=== PATIENT | female | born 1995 ===

== ENCOUNTER 2017-03-19 23:16 | Emergency (ER) | payer MEDICAID ==
[2017-03-19 23:17] VITALS: BMI 31.8
[2017-03-19 23:33] VITALS: RESP 16; O2SAT 98
[2017-03-19] MEDS ORDERED: Dexamethasone 4 mg/1 ml ONE (23:45)
[2017-03-19] MEDS: Sodium Chloride 0.9% 1,000 ML IV STA (23:59)
--- NOTE | 2017-03-20 00:22 | ED PDOC ---
HPI: General Adult Time Seen by Provider: 03/19/17 23:36 Chief Complaint (Nursing): Cough, Cold, Congestion Chief Complaint (Provider): sore throat, body aches, fever History Per: Patient History/Exam Limitations: no limitations Onset/Duration Of Symptoms: Days Have you had recent travel within the past 21 days to any of the following countries: [place], [place], [place] or [place]?: No Current Symptoms Are (Timing): Still Present Additional Complaint(s): 22yo female with PMHx including migraines presents to the ED with c/o b/l sore throat, body aches, fever ongoing since this past weekend. Patient states she has pain swallowing food but able to swallow liquids without difficulty. Denies drooling, neck pain, headache, v/d, sick contacts. Patient told triage she had shortness of breath but denies upon provider interview. Past Medical History Reviewed: Historical Data, Nursing Documentation, Vital Signs Vital Signs: Last Vital Signs Temp 100.5 F H 03/19/17 23:58 Pulse 118 H 03/19/17 23:27 Resp 16 03/19/17 23:27 BP 130/83 03/19/17 23:27 Pulse Ox 98 03/19/17 23:27 - Medical History PMH: Migraine Denies: Depression - Surgical History Surgical History: No Surg Hx - Family History Family History: States: No Known Family Hx - Social History Current smoker - smoking cessation education provided: No - Home Medications Home Medications: Ambulatory Orders Medication Instructions Recorded Vitamins6 [ 1 tab PO DAILY 04/29/15 Vitamin] Cephalexin [Keflex] 500 mg PO Q6 #20 cap 04/30/15 Clindamycin [Cleocin] 300 mg PO TID #21 cap 03/20/17 Naproxen [Naprosyn] 500 mg PO BID PRN #14 tablet 03/20/17 - Allergies Allergies/Adverse Reactions: Allergies Allergy/AdvReac Type Severity Reaction Status Date / Time No Known Allergies Allergy Verified 04/29/15 22:58 Review of Systems ROS Statement: Except As Marked, All Systems Reviewed And Found Negative Constitutional: Positive for: Fever, Other (body aches ) ENT: Positive for: Throat Pain, Other (no drooling ) Respiratory: Positive for: Cough (mild ). Negative for: Shortness of Breath Gastrointestinal: Negative for: Vomiting, Diarrhea Musculoskeletal: Negative for: Neck Pain Neurological: Negative for: Headache Physical Exam - Reviewed Nursing Documentation Reviewed: Yes Vital Signs Reviewed: Yes - Physical Exam Appears: Positive for: Well, No Acute Distress Head Exam: Positive for: ATRAUMATIC, NORMAL INSPECTION, NORMOCEPHALIC Skin: Positive for: Normal Color, Warm, Dry Eye Exam: Positive for: Normal appearance, EOMI, PERRL ENT: Positive for: Pharynx Is (patent ), Tonsillar Exudate, Tonsillar Swelling ( b/l inflamed tonsils w/ exudates ), Other (no tongue swelling, no tenderness, no submental, shotty lymph nodes b/l ) Neck: Positive for: Normal, Painless ROM, Supple Cardiovascular/Chest: Positive for: Regular Rate, Rhythm. Negative for: Murmur , Tachycardia Respiratory: Positive for: Normal Breath Sounds. Negative for: Wheezing, Respiratory Distress Gastrointestinal/Abdominal: Positive for: Normal Exam, Soft. Negative for: Tenderness Back: Positive for: Normal Inspection Extremity: Positive for: Normal ROM. Negative for: Deformity, Swelling Neurologic/Psych: Positive for: Alert, Oriented - ECG ECG: Positive for: Interpreted By Me, Viewed By Me ECG Rhythm: Positive for: Sinus Tachycardia (at 108 bpm, no acute ST changes ) O2 Sat by Pulse Oximetry: 98 Pulse Ox Interpretation: Normal (RA) Medical Decision Making Medical Decision Makin: Impression: tonsillitis Decadron, IVF, and clindamycin ordered. Patient stable for d/c with Rx for clindamycin and naprosyn. Scribe Attestation: Documented by Zuly Mancuso acting as a scribe for Maurizio Cuevas III, DO. Provider Scribe Attestation: All medical record entries made by the Scribe were at my direction and personally dictated by me. I have reviewed the chart and agree that the record accurately reflects my personal performance of the history, physical exam, medical decision making, and the department course for this patient. I have also personally directed, reviewed, and agree with the discharge instructions and disposition. Disposition - Clinical Impression Clinical Impression: Tonsillitis - Patient ED Disposition Is Patient to be Admitted: No - Disposition Referrals: Conor Torres MD [Primary Care Provider] - Disposition: Routine/Home Disposition Time: 00:25
[2017-03-20] MEDS: Clindamycin 600 MG in Sodium Chloride 0.9% 100 ML IVPB ONE (00:41)
[2017-03-20 01:49] VITALS: TEMP 98.2
[2017-03-20 01:54] VITALS: BP 118/70; PULSE 89
--- NOTE | 2017-03-20 10:58 | RAD ---
HISTORY: SOB fever COMPARISON: PrintNo prior. TECHNIQUE: Chest PA and lateral FINDINGS: LUNGS: No active pulmonary disease. PLEURA: No significant pleural effusion identified. No pneumothorax apparent. CARDIOVASCULAR: Normal. OSSEOUS STRUCTURES: No significant abnormalities. VISUALIZED UPPER ABDOMEN: Normal. OTHER FINDINGS: None. IMPRESSION: No active disease.
--- NOTE | 2017-03-21 18:54 | CARD ---
APPROVED REPORT EKG Measurement Heart [id number] <Conclusion> Sinus tachycardia Minimal voltage criteria for LVH, may be normal variant Borderline ECG
== END 2017-03-20 01:55 | disposition home or self-care (01) ==
LOC: H.ER 23:16
DX: J03.90 Acute tonsillitis, unspecified (principal); R06.02 Shortness of breath; R05 Cough

== ENCOUNTER 2017-07-17 18:45 | Emergency (ER) | payer MEDICAID, OTHER ==
[2017-07-17 18:45] VITALS: BMI 31.8
[2017-07-17 19:03] VITALS: BP 133/75; PULSE 108; RESP 18; TEMP 100.1; O2SAT 99
--- NOTE | 2017-07-17 19:19 | ED PDOC ---
HPI: Fever Fever Onset Was: 07/18/17 The Fever Was Measured: Oral Recent Sick Contacts: Yes Additional Comments: Pt reports fever, thorat pain and ear pain. Pt states her daughter was diagnosed with strep throat earlier today. Past Medical History Reviewed: Historical Data, Nursing Documentation, Vital Signs Vital Signs: Last Vital Signs Temp 100.1 F H 07/17/17 19:01 Pulse 108 H 07/17/17 19:01 Resp 18 07/17/17 19:01 BP 133/75 07/17/17 19:01 Pulse Ox 99 07/17/17 19:01 - Medical History PMH: No Chronic Diseases, Migraine Denies: Depression - Surgical History Surgical History: No Surg Hx - Family History Family History: States: No Known Family Hx - Living Arrangements Living Arrangements: With Family - Social History Current smoker - smoking cessation education provided: No Alcohol: None Drugs: Denies - Home Medications Home Medications: Ambulatory Orders Medication Instructions Recorded Clindamycin [Cleocin] 300 mg PO TID #21 cap 03/20/17 Naproxen [Naprosyn] 500 mg PO BID PRN #14 tablet 03/20/17 Amoxicillin/Clavulanate [Augmentin 1 tab PO BID #20 tab 07/17/17 875 MG-125 MG] - Allergies Allergies/Adverse Reactions: Allergies Allergy/AdvReac Type Severity Reaction Status Date / Time No Known Allergies Allergy Verified 04/29/15 22:58 Review of Systems ROS Statement: Except As Marked, All Systems Reviewed And Found Negative Constitutional: Positive for: Fever, Chills ENT: Positive for: Ear Pain, Throat Pain Physical Exam - Reviewed Nursing Documentation Reviewed: Yes Vital Signs Reviewed: Yes - Physical Exam Appears: Positive for: Well, Non-toxic, No Acute Distress Head Exam: Positive for: ATRAUMATIC, NORMAL INSPECTION, NORMOCEPHALIC Skin: Positive for: Normal Color, Warm, DRY Eye Exam: Positive for: Normal appearance ENT: Positive for: TM Is/Are ((+) bilateral erythema ). Negative for: Normal ENT Inspection Neck: Positive for: Normal, Painless ROM Cardiovascular/Chest: Positive for: Regular Rate, Rhythm Respiratory: Positive for: CNT, Normal Breath Sounds Gastrointestinal/Abdominal: Positive for: Normal Exam, Bowel Sounds, Soft Back: Positive for: Normal Inspection Extremity: Positive for: Normal ROM Neurologic/Psych: Positive for: Alert, Oriented - ECG O2 Sat by Pulse Oximetry: 99 Disposition - Clinical Impression Clinical Impression: Otitis media - Patient ED Disposition Is Patient to be Admitted: No Counseled Patient/Family Regarding: Diagnosis, Need For Followup, Rx Given - Disposition Disposition: Routine/Home Disposition Time: 19:16 Condition: GOOD Prescriptions: Amoxicillin/Clavulanate [Augmentin 875 MG-125 MG] 1 tab PO BID #20 tab Instructions: Upper Respiratory Infection (ED)
== END 2017-07-17 19:28 | disposition home or self-care (01) ==
LOC: H.ER 18:45
DX: H66.90 Otitis media, unspecified, unspecified ear (principal)

== ENCOUNTER 2018-06-03 19:45 | Observation (INO) | payer OTHER ==
[2018-06-03 21:15] VITALS: BMI 28.2
[2018-06-03] MEDS ORDERED: Sodium Chloride 0.9% 1,000 ML IV STA (21:33)
--- NOTE | 2018-06-03 21:37 | ED PDOC ---
HPI: Abdomen Time Seen by Provider: 06/03/18 21:19 Chief Complaint (Nursing): Abdominal Pain Chief Complaint (Provider): abdominal pain History Per: Patient History/Exam Limitations: no limitations Onset/Duration Of Symptoms: Days Current Symptoms Are (Timing): Better Location Of Pain/Discomfort: RLQ Associated Symptoms: Nausea, Vomiting Additional Complaint(s): 23 y/o female presents for evaluation of abdominal pain x 2 days. Associated vomiting x 5. Patient also notes right-sided throat pain x 3 days. Denies fever, cough, congestion, chest pain, shortness of breath, palpitations, changes in bowel movements, urinary symptoms, recent travel, sick contacts Past Medical History Reviewed: Historical Data, Nursing Documentation, Vital Signs Vital Signs: Last Vital Signs Temp 98.5 F 06/03/18 21:15 Pulse 69 06/03/18 21:15 Resp 19 06/03/18 21:15 BP 131/80 06/03/18 21:15 Pulse Ox 100 06/03/18 23:18 - Medical History PMH: Migraine Denies: Depression - Surgical History Surgical History: No Surg Hx - Family History Family History: States: No Known Family Hx - Living Arrangements Living Arrangements: With Family - Home Medications Home Medications: Ambulatory Orders Medication Instructions Recorded Clindamycin [Cleocin] 300 mg PO TID #21 cap 03/20/17 Naproxen [Naprosyn] 500 mg PO BID PRN #14 tablet 03/20/17 Amoxicillin/Clavulanate [Augmentin 1 tab PO BID #20 tab 07/17/17 875 MG-125 MG] - Allergies Allergies/Adverse Reactions: Allergies Allergy/AdvReac Type Severity Reaction Status Date / Time No Known Allergies Allergy Verified 04/29/15 22:58 Review of Systems ROS Statement: Except As Marked, All Systems Reviewed And Found Negative ENT: Positive for: Throat Pain Gastrointestinal: Positive for: Nausea, Vomiting, Abdominal Pain Physical Exam - Reviewed Nursing Documentation Reviewed: Yes Vital Signs Reviewed: Yes - Physical Exam Appears: Positive for: Well, Non-toxic, No Acute Distress Head Exam: Positive for: ATRAUMATIC, NORMAL INSPECTION, NORMOCEPHALIC Skin: Positive for: Normal Color Eye Exam: Positive for: Normal appearance ENT: Positive for: Pharyngeal Erythema. Negative for: Tonsillar Exudate, Tonsillar Swelling Cardiovascular/Chest: Positive for: Regular Rate, Rhythm Respiratory: Positive for: Normal Breath Sounds Gastrointestinal/Abdominal: Positive for: Bowel Sounds, Soft, Tenderness (RLQ) Back: Positive for: Normal Inspection Extremity: Positive for: Normal ROM Neurologic/Psych: Positive for: Alert, Oriented (x3) - Laboratory Results Result Diagrams: 06/03/18 21:55 06/03/18 21:55 - ECG O2 Sat by Pulse Oximetry: 100 - Progress ED Course And Treament: labs, urine, CT abd/pelvis, rapid strep, IV fluids EXAM: CT Abdomen and Pelvis With Intravenous Contrast CLINICAL HISTORY: 23 years old, female; Pain and signs and symptoms; Nausea; Abdominal pain; Localized; Right lower quadrant (rlq); Additional info: Rlq pain TECHNIQUE: Axial computed tomography images of the abdomen and pelvis with intravenous contrast. All CT scans at this facility use at least one of these dose optimization techniques: automated exposure control; mA and/or kV adjustment per patient size (includes targeted exams where dose is matched to clinical indication); or iterative reconstruction. Coronal and sagittal reformatted images were created and reviewed. CONTRAST: 95 mL of [id number] administered intravenously. COMPARISON: No relevant prior studies available. FINDINGS: Lung bases: Unremarkable. No mass. No consolidation. ABDOMEN: Liver: There is a focal liver hypodensity that cannot be further characterized on the current examination. Gallbladder and bile ducts: Unremarkable. No calcified stones. No ductal dilation. Pancreas: Unremarkable. No mass. No ductal dilation. Spleen: Unremarkable. No splenomegaly. Adrenals: Unremarkable. No mass. Kidneys and ureters: Unremarkable. No solid mass. No hydronephrosis. Stomach and bowel: Unremarkable. No obstruction. No mucosal thickening. PELVIS: Appendix: The appendix is partially obscured by unopacified bowel loops. Question abnormal appendiceal tip measuring 10 mm. Coronal image 53 series 601. Bladder: Unremarkable. No mass. Reproductive: Unremarkable as visualized. ABDOMEN and PELVIS: Intraperitoneal space: Unremarkable. No free air. No significant fluid collection. Bones/joints: No acute fracture. No dislocation. Soft tissues: Unremarkable. Vasculature: Unremarkable. No abdominal aortic aneurysm. Lymph nodes: Unremarkable. No enlarged lymph nodes. IMPRESSION: Limited visualization of the appendix secondary to unopacified bowel loops in the right lower quadrant. Question abnormal appendiceal tip measuring 10 mm. Early acute appendicitis is not excluded. Clinical correlation and followup recommended. Patient evaluated by Dr. Skaggs, surgical garment inspector on-call, who discussed case with Dr. Alvarez; will admit for observation Disposition - Clinical Impression Clinical Impression: Abdominal pain - Disposition Disposition Time: 00:26 Condition: STABLE
[2018-06-03] MEDS ORDERED: Iohexol 300 100 ML IJ ONE (21:46)
[2018-06-03] MEDS ORDERED: Sodium Chloride 0.9% 50 ML IV ONE (21:47)
[2018-06-03 22:30] LABS: BASO % 0.5 % (0.0-2.0); EOS # 0.2 K/uL (0.0-0.7); EOS % 2.1 % (0.0-4.0); HEMOGLOBIN 12.6 g/dL (12.0-16.0); LYMPH # 1.9 K/uL (1.0-4.3); LYMPH % 21.5 % (20.0-40.0); MEAN CORPUSCULAR HEMOGLOBIN 28.2 pg (27.0-31.0); MEAN CORPUSCULAR HGB CONC 33.1 g/dL (33.0-37.0); MEAN PLATELET VOLUME 7.3 fl (7.2-11.7); MONO # 0.3 K/uL (0.0-0.8); MONO % 3.8 % (0.0-10.0); NEUT # 6.3 K/uL (1.8-7.0); NEUT % 72.1 % (50.0-75.0); NRBC % 0.1 % (0.0-0.0); RBC 4.49 Mil/uL (3.80-5.20); RED CELL DISTRIBUTION WIDTH 14.4 % (11.5-14.5); WHITE BLOOD COUNT 8.7 K/uL (4.8-10.8)
[2018-06-03 22:35] LABS: BLOOD UREA NITROGEN 12 mg/dl (7-17); GFR AFRICAN-AMERICAN > 60; GFR NON-AFRICAN AMERICAN > 60
[2018-06-03 22:36] LABS: ALB/GLOB RATIO 1.1 (1.0-2.1); ALBUMIN 4.5 g/dL (3.5-5.0); ALT/SGPT 22 U/L (9-52); AST/SGOT 21 U/L (14-36); CALCIUM 9.4 mg/dL (8.4-10.2)
[2018-06-03 22:42] LABS: SQUAMOUS EPITHIAL < 1 /hpf (0-5); URINE BILIRUBIN NEGATIVE (NEGATIVE); URINE BLOOD NEGATIVE (NEGATIVE); URINE CLARITY SLIGHTY-CLOUDY (Clear); URINE COLOR YELLOW (YELLOW); URINE GLUCOSE (UA) NEG (Normal); URINE LEUKOCYTE ESTERASE NEG Leu/uL (Negative); URINE PROTEIN NEGATIVE (NEGATIVE); URINE UROBILINOGEN 0.2-1.0 mg/dL (0.2-1.0)
[2018-06-03 22:55] LABS: INR 1.2; PARTIAL THROMBOPLASTIN TIME 34.5 Seconds (25.6-37.1); PROTHROMBIN TIME 12.8 Seconds (9.8-13.1)
--- NOTE | 2018-06-04 00:20 | CP.PCM.HP ---
History of Present Illness - History of Present Illness History of Present Illness: General surgery H & P for Dr. Colten Skaggs, PGY-2 Pt S & E at bedside at 2345 23F w/PMH sig for hx of constipation, hx of recurrent RLQ ab pain admitted for abdominal pain x 1 day. Pt reports eating [employer] prior to onset of emesis x 5 (nb, nb, food stuff) after PO intake. Pt reports onset of mid abdominal ab discomfort after emesis. Discomfort is crampy, radiates diffusely, moderate intensity, worse with movement. Additionally, pt reports RLQ pain & discomfort that has recurred for years without etiology identified. Has tried OCPs without alleviated. Pain is intermittent, no inciting factors identified. Had it while she was . Admits to recent URI illness (cough, congestion, sore throat) approximately 1 week ago, odynophagia. Denies F & C, constipation (last BM on day of admission- normal caliber/color), dysuria, hematuria, diarrhea, constipation, sick contacts, other complaints IN ED- afebrile, no leukocytosis. CT abdomen with V-rad finding Limited visualization of the appendix secondary to unopacified bowel loops in the right lower quadrant. Question abnormal appendiceal tip measuring 10 mm. Early acute appendicitis is not excluded. Clinical correlation and followup recommended. Strep neg. PMH: hx constipation, hx of recurrent RLQ ab pain PSH: Denies All: NKDA SH: Admits to occasional ETOH use #2-3 drinks monthly; denies tobacco, illicit drug use FH: Non contributory PMD: Conor Torres Present on Admission - Present on Admission Any Indicators Present on Admission: No History of DVT/PE: No History of Uncontrolled Diabetes: No Urinary Catheter: No Decubitus Ulcer Present: No Review of Systems - Review of Systems All systems: reviewed and no additional remarkable complaints except - Constitutional Constitutional: absent: Chills, Fever, Headache, Weakness - EENT Eyes: absent: Change in Vision Ears: absent: Dizziness Nose/Mouth/Throat: Odynophagia, Sore Throat - Cardiovascular Cardiovascular: absent: Chest Pain - Respiratory Respiratory: Cough - Gastrointestinal Gastrointestinal: Abdominal Pain, Cramping, Nausea, Vomiting. absent: Constipation, Diarrhea, Hematemesis, Hematochezia - Genitourinary Genitourinary: absent: Change in Urinary Stream, Dysuria, Hematuria, Urinary Frequency, Urinary Urgency, Voiding Freq/Small Amts - Musculoskeletal Musculoskeletal: absent: Back Pain, Numbness, Tingling - Integumentary Integumentary: absent: Rash - Neurological Neurological: absent: Dizziness, Weakness - Psychiatric Psychiatric: absent: Change in Appetite Past Patient History - Past Social History Smoking Status: Never Smoked - NEUROLOGICAL Hx Migraine: Yes - PSYCHIATRIC Hx Depression: No - ANESTHESIA Hx Anesthesia: No Meds Allergies/Adverse Reactions: Allergies Allergy/AdvReac Type Severity Reaction Status Date / Time No Known Allergies Allergy Verified 04/29/15 22:58 Physical Exam - Constitutional Appears: Non-toxic, No Acute Distress - Head Exam Head Exam: ATRAUMATIC, NORMAL INSPECTION, NORMOCEPHALIC - Eye Exam Eye Exam: EOMI, Normal appearance - ENT Exam ENT Exam: Mucous Membranes Moist, Normal Exam - Neck Exam Neck exam: Positive for: Full Rom, Normal Inspection - Respiratory Exam Respiratory Exam: Clear to Auscultation Bilateral, NORMAL BREATHING PATTERN - Cardiovascular Exam Cardiovascular Exam: REGULAR RHYTHM, +S1, +S2 - GI/Abdominal Exam GI & Abdominal Exam: Normal Bowel Sounds, Soft, Tenderness (RLQ). absent: Distended (obese), Firm, Guarding, Hernia, Rebound - Rectal Exam Rectal Exam: Deferred - Extremities Exam Extremities exam: Positive for: normal inspection - Neurological Exam Neurological exam: Alert, CN II-XII Intact, Oriented x3 - Psychiatric Exam Psychiatric exam: Normal Affect, Normal Mood - Skin Skin Exam: Dry, Intact, Normal Color, Warm Results - Vital Signs Recent Vital Signs: Last Vital Signs Temp 98.5 F 06/03/18 21:15 Pulse 69 06/03/18 21:15 Resp 19 06/03/18 21:15 BP 131/80 06/03/18 21:15 Pulse Ox 100 06/03/18 23:18 - Labs Result Diagrams: 06/03/18 21:55 06/03/18 21:55 Labs: Laboratory Results - last 24 hr 06/03/18 06/03/18 06/03/18 21:55 21:55 21:55 WBC 8.7 RBC 4.49 Hgb 12.6 Hct 38.2 MCV 85.0 MCH 28.2 MCHC 33.1 RDW 14.4 Plt Count 377 D MPV 7.3 Neut % (Auto) 72.1 Lymph % (Auto) 21.5 [place] % (Auto) 3.8 Eos % (Auto) 2.1 Baso % (Auto) 0.5 Neut # (Auto) 6.3 Lymph # (Auto) 1.9 [place] # (Auto) 0.3 Eos # (Auto) 0.2 Baso # (Auto) 0.0 PT 12.8 INR 1.2 APTT 34.5 Sodium 143 Potassium 4.0 Chloride 105 Carbon Dioxide 26 Anion Gap 16 BUN 12 Creatinine 0.6 L Est GFR ( Amer) > 60 Est GFR (Non-Af Amer) > 60 Random Glucose 100 Calcium 9.4 Total Bilirubin 0.6 AST 21 ALT 22 Alkaline Phosphatase 81 Total Protein 8.6 H Albumin 4.5 Globulin 4.1 H Albumin/Globulin Ratio 1.1 Urine Color Urine Clarity Urine pH Ur Specific [place] Urine Protein Urine Glucose (UA) Urine Ketones Urine Blood Urine Nitrate Urine Bilirubin Urine Urobilinogen Ur Leukocyte Esterase Urine RBC (Auto) Urine Microscopic WBC Ur Squamous Epith Cells Grp A Beta Strep Ag 06/03/18 06/03/18 21:55 21:55 WBC RBC Hgb Hct MCV MCH MCHC RDW Plt Count MPV Neut % (Auto) Lymph % (Auto) [place] % (Auto) Eos % (Auto) Baso % (Auto) Neut # (Auto) Lymph # (Auto) [place] # (Auto) Eos # (Auto) Baso # (Auto) PT INR APTT Sodium Potassium Chloride Carbon Dioxide Anion Gap BUN Creatinine Est GFR ( Amer) Est GFR (Non-Af Amer) Random Glucose Calcium Total Bilirubin AST ALT Alkaline Phosphatase Total Protein Albumin Globulin Albumin/Globulin Ratio Urine Color Yellow Urine Clarity Slighty-cloudy Urine pH 6.0 Ur Specific [place] 1.025 Urine Protein Negative Urine Glucose (UA) Neg Urine Ketones Negative Urine Blood Negative Urine Nitrate Negative Urine Bilirubin Negative Urine Urobilinogen 0.2-1.0 Ur Leukocyte Esterase Neg Urine RBC (Auto) 4 H Urine Microscopic WBC 1 Ur Squamous Epith Cells < 1 Grp A Beta Strep Ag Negative Assessment & Plan - Assessment and Plan (Free Text) Assessment: 23F w/recurrent RLQ ab pain in setting of emesis Plan: Admit to Med Surg VS Q6H Pain control IVF NPO Anti-emetic Serial ab exams FU AM labs SCD Protonix Ambulate OOBTC DW Attending Sharifa, PGY-2 - Date & Time Date: 06/04/18 Time: 00:19 Decision To Admit - Pt Status Changed To: Hospital Disposition Of: Observation - . Bed Request Type: Med/Surg Admitting Physician: Goyo Alvarez
[2018-06-04] MEDS: Lactated Ringer's 1,000 ML IV SCH ×2 (00:27→11:04)
[2018-06-04 08:03] VITALS: TEMP 97.8; O2SAT 99
[2018-06-04] MEDS ORDERED: Iohexol 240 (50 ml) PO ONE (09:09)
[2018-06-04 09:45] LABS: HEMOGLOBIN 11.3 g/dL (12.0-16.0); MEAN CELL VOLUME 83.9 fl (81.0-99.0); MEAN CORPUSCULAR HEMOGLOBIN 28.8 pg (27.0-31.0); MEAN CORPUSCULAR HGB CONC 34.3 g/dL (33.0-37.0); RBC 3.94 Mil/uL (3.80-5.20); RED CELL DISTRIBUTION WIDTH 14.6 % (11.5-14.5); WHITE BLOOD COUNT 6.7 K/uL (4.8-10.8)
[2018-06-04 10:09] LABS: BLOOD UREA NITROGEN 11 mg/dl (7-17); CALCIUM 8.8 mg/dL (8.4-10.2); GFR AFRICAN-AMERICAN > 60; GFR NON-AFRICAN AMERICAN > 60
--- NOTE | 2018-06-04 11:10 | CT ---
Date of service: 06/03/2018 PROCEDURE: CT Abdomen and Pelvis with contrast HISTORY: Right lower quadrant pain COMPARISON: Mantle TECHNIQUE: Contrast dose: 95.2 mL Omnipaque 300 Radiation dose: Total exam DLP = 765.85 mGy-cm. This CT exam was performed using one or more of the following dose reduction techniques: Automated exposure control, adjustment of the mA and/or kV according to patient size, and/or use of iterative reconstruction technique. FINDINGS: LOWER THORAX: Unremarkable. LIVER: Unremarkable. No gross lesion or ductal dilatation. GALLBLADDER AND BILE DUCTS: Unremarkable. PANCREAS: Unremarkable. No gross lesion or ductal dilatation. SPLEEN: Unremarkable. ADRENALS: Unremarkable. No mass. KIDNEYS AND URETERS: Unremarkable. No hydronephrosis. No solid mass. VASCULATURE: Unremarkable. No aortic aneurysm. BOWEL: Unremarkable. No obstruction. No gross mural thickening. APPENDIX: Normal appendix. PERITONEUM: Unremarkable. No free fluid. No free air. LYMPH NODES: Unremarkable. No enlarged lymph nodes. BLADDER: Unremarkable. REPRODUCTIVE: Unremarkable. BONES: No acute fracture. OTHER FINDINGS: None. IMPRESSION: No acute findings related to/accounting for the clinical presentation.
--- NOTE | 2018-06-04 14:57 | CT ---
Date of service: 06/04/2018 PROCEDURE: CT Abdomen and Pelvis with contrast HISTORY: RLQ pain; r/o appendicitis COMPARISON: June 03, 2018. CT abdomen and pelvis TECHNIQUE: Contrast dose: Oral contrast only. Radiation dose: Total exam DLP = mGy-cm. This CT exam was performed using one or more of the following dose reduction techniques: Automated exposure control, adjustment of the mA and/or kV according to patient size, and/or use of iterative reconstruction technique. FINDINGS: LOWER THORAX: Unremarkable. LIVER: Unremarkable. No gross lesion or ductal dilatation. GALLBLADDER AND BILE DUCTS: Vicarious excretion of contrast into the appendix related to prior contrast-enhanced CT. PANCREAS: Unremarkable. No gross lesion or ductal dilatation. SPLEEN: Unremarkable. ADRENALS: Unremarkable. No mass. KIDNEYS AND URETERS: Unremarkable. No hydronephrosis. No solid mass. VASCULATURE: Unremarkable. No aortic aneurysm. BOWEL: Unremarkable. No obstruction. No gross mural thickening. APPENDIX: Normal caliber appendix with trace oral contrast in the proximal appendix. The distal aspect of the esophagus which extends to the midline is unremarkable. No periappendiceal inflammatory changes. PERITONEUM: Unremarkable. No free fluid. No free air. LYMPH NODES: Unremarkable. No enlarged lymph nodes. BLADDER: Unremarkable. REPRODUCTIVE: Unremarkable. BONES: No acute fracture. OTHER FINDINGS: None. IMPRESSION: No abnormalities to suggest acute appendicitis. No right lower quadrant inflammatory processes identified. No significant interval change compared to the prior examination(s).
[2018-06-04 16:04] VITALS: BP 134/67; PULSE 68; RESP 16
== END 2018-06-04 20:30 | disposition home or self-care (01) ==
LOC: H.ER 19:45 → H.ERHOLD 06-04 00:22 → H.PEDS 06-04 02:08
PROVIDERS: ADMIT Surgery; ATTEND Surgery
DX: R10.31 Right lower quadrant pain (principal); R11.2 Nausea with vomiting, unspecified; R07.0 Pain in throat; G43.909 Migraine, unspecified, not intractable, without status migrainosus
CPT/HCPCS: 36415; 74176; 74177; 80048; 80053; 81003; 81025; 85025; 85027; 85610; 85730; 87070; 87430; 99285; C9113; G0378; J7030; J7120; Q9966; Q9967

== ENCOUNTER 2019-02-02 14:34 | Emergency (ER) | payer OTHER ==
[2019-02-02 14:55] VITALS: BMI 32.3
[2019-02-02 16:01] LABS: BASO % 0.5 % (0.0-2.0); EOS % 0.6 % (0.0-4.0); HEMOGLOBIN 12.4 g/dL (12.0-16.0); LYMPH # 1.3 K/uL (1.0-4.3); LYMPH % 23.7 % (20.0-40.0); MEAN CORPUSCULAR HGB CONC 33.3 g/dL (33.0-37.0); MEAN PLATELET VOLUME 7.2 fl (7.2-11.7); MONO # 0.3 K/uL (0.0-0.8); MONO % 5.8 % (0.0-10.0); NEUT # 3.9 K/uL (1.8-7.0); NEUT % 69.4 % (50.0-75.0); NRBC % 0.1 % (0.0-0.0); RBC 4.43 Mil/uL (3.80-5.20); RED CELL DISTRIBUTION WIDTH 13.4 % (11.5-14.5); WHITE BLOOD COUNT 5.7 K/uL (4.8-10.8)
--- NOTE | 2019-02-02 16:06 | ED PDOC ---
HPI: Chest Pain Time Seen by Provider: 02/02/19 15:11 Chief Complaint (Nursing): Shortness Of Breath Chief Complaint (Provider): Chest Pain History Per: Patient History/Exam Limitations: no limitations Onset/Duration Of Symptoms: Days (2) Current Symptoms Are (Timing): Still Present Quality: Tightness Additional Complaint(s): 23 year old female presents to the ED for an evaluation of left-sided chest pain onset Friday that worsens with deep breaths. She feels chest tightness that is constant. Also reports of migraines for which she takes medicine prescribed from her doctor. Otherwise, she denies cough, fever, leg swelling or heavy lifting. PMD: Conor Torres Past Medical History Reviewed: Historical Data, Nursing Documentation, Vital Signs Vital Signs: Last Vital Signs Temp 98.5 F 02/02/19 14:55 Pulse 72 02/02/19 14:55 Resp 17 02/02/19 14:55 BP 122/77 02/02/19 14:55 Pulse Ox 100 02/02/19 14:55 - Medical History PMH: Migraine Denies: Depression, HIV, Chronic Kidney Disease - Family History Family History: States: Unknown Family Hx - Social History Current smoker - smoking cessation education provided: No Alcohol: None Drugs: Denies - Home Medications Home Medications: Ambulatory Orders Medication Instructions Recorded No Known Home Med 06/04/18 - Allergies Allergies/Adverse Reactions: Allergies Allergy/AdvReac Type Severity Reaction Status Date / Time No Known Allergies Allergy Verified 04/29/15 22:58 Review of Systems ROS Statement: Except As Marked, All Systems Reviewed And Found Negative Constitutional: Negative for: Fever Cardiovascular: Positive for: Chest Pain Respiratory: Negative for: Cough Musculoskeletal: Negative for: Other (leg swelling ) Physical Exam - Reviewed Nursing Documentation Reviewed: Yes Vital Signs Reviewed: Yes - Physical Exam Appears: Positive for: Well, Non-toxic, No Acute Distress Head Exam: Positive for: ATRAUMATIC, NORMAL INSPECTION, NORMOCEPHALIC Skin: Positive for: Normal Color, Warm, Dry. Negative for: Rash Eye Exam: Positive for: EOMI, Normal appearance, PERRL ENT: Positive for: Normal ENT Inspection Neck: Positive for: Normal, Painless ROM. Negative for: Supple Cardiovascular/Chest: Positive for: Regular Rate, Rhythm. Negative for: Murmur Respiratory: Positive for: Normal Breath Sounds. Negative for: Respiratory Distress Gastrointestinal/Abdominal: Positive for: Normal Exam, Soft. Negative for: Tenderness Back: Positive for: Normal Inspection Extremity: Positive for: Normal ROM. Negative for: Tenderness, Pedal Edema, Deformity Neurological/Psych: Positive for: Awake, Alert, Normal Tone, Oriented (x3) - Laboratory Results Result Diagrams: 02/02/19 15:40 02/02/19 15:40 - ECG ECG Rhythm: Positive for: Normal QRS, Normal ST Segment, Sinus Rhythm Rate: 66 O2 Sat by Pulse Oximetry: 100 (RA) Pulse Ox Interpretation: Normal Medical Decision Making Medical Decision Making: Time: 153 Impression: chest pain Differential Diagnosis: ACS, PE, musculoskeletal pain Plan: EKG BMP Troponin CBC w/ differential D Dimer Chest two views (PA/LAT) [RAD] Toradol 30mg radiation monitor Reevaluation Time: 1720 chest xray FINDINGS: LUNGS: No active pulmonary disease. PLEURA: No significant pleural effusion identified. No pneumothorax apparent. CARDIOVASCULAR: No aortic atherosclerotic calcification present. Normal cardiac size. No pulmonary vascular congestion. OSSEOUS STRUCTURES: No significant abnormalities. VISUALIZED UPPER ABDOMEN: Normal. OTHER FINDINGS: None. IMPRESSION: No active disease. No significant interval change compared to the prior examination(s). Time: 1816 Ct Findings: Visualized portions of the inferior thyroid gland appear unremarkable. The m ediastinal and hilar vascular structures appear within normal limits. The heart appears within normal limits of size. No large central or segmental pulmonary embolus evident. No focal consolidation. No pleural effusion. No pneumothorax. No suspicious pulmonary nodules measuring greater than 5 mm. Limited visualized portions of the upper abdomen appear grossly unremarkable. No acute osseous abnormality is detected. Impression: No large central or segmental pulmonary embolus evident. ENK: normal sinus rhythm at 66bpm Scribe Attestation: Documented by Richard Steen, acting as a scribe for Edson Corley MD Provider Scribe Attestation: All medical record entries made by the Scribe were at my direction and personally dictated by me. I have reviewed the chart and agree that the record accurately reflects my personal performance of the history, physical exam, medical decision making, and the department course for this patient. I have also personally directed, reviewed, and agree with the discharge instructions and disposition. Disposition - Disposition Disposition Time: 18:32 Forms: [employer] (Japanese)
[2019-02-02 16:17] LABS: BLOOD UREA NITROGEN 10 mg/dl (7-17); CALCIUM 8.8 mg/dL (8.4-10.2); GFR NON-AFRICAN AMERICAN > 60
[2019-02-02] MEDS ORDERED: Iodixanol 320 MG/ML 100 ML BOTTLE IV ONE (17:07)
[2019-02-02] MEDS ORDERED: Sodium Chloride 0.9% 50 ML IV ONE (17:07)
--- NOTE | 2019-02-02 17:25 | RAD ---
Date of service: 02/02/2019 HISTORY: CHEST PAIN COMPARISON: 03/19/2017 TECHNIQUE: Chest PA and lateral views FINDINGS: LUNGS: No active pulmonary disease. PLEURA: No significant pleural effusion identified. No pneumothorax apparent. CARDIOVASCULAR: No aortic atherosclerotic calcification present. Normal cardiac size. No pulmonary vascular congestion. OSSEOUS STRUCTURES: No significant abnormalities. VISUALIZED UPPER ABDOMEN: Normal. OTHER FINDINGS: None. IMPRESSION: No active disease. No significant interval change compared to the prior examination(s).
--- NOTE | 2019-02-02 18:21 | CT ---
Date of service: 02/02/2019 CTA chest PE protocol Indication: chest pain Technique: Contiguous axial images were obtained through the chest with intravenous contrast enhancement. Sagittal and coronal reconstructions were generated and reviewed. This CT exam was performed using 1 or more of the following dose reduction techniques: Automated exposure control, adjustment of the MAA and/or kV according to patient size, and/or use of iterative reconstruction technique. IV contrast: 75 mL Visipaque 320 Radiation dose (DLP): 283.77 MGy-cm. Comparison: Chest x-ray performed 02/02/19 Findings: Visualized portions of the inferior thyroid gland appear unremarkable. The mediastinal and hilar vascular structures appear within normal limits. The heart appears within normal limits of size. No large central or segmental pulmonary embolus evident. No focal consolidation. No pleural effusion. No pneumothorax. No suspicious pulmonary nodules measuring greater than 5 mm. Limited visualized portions of the upper abdomen appear grossly unremarkable. No acute osseous abnormality is detected. Impression: No large central or segmental pulmonary embolus evident.
[2019-02-02 19:01] VITALS: BP 105/64; PULSE 80; RESP 18; TEMP 97.6; O2SAT 98
--- NOTE | 2019-02-03 10:07 | CARD ---
APPROVED REPORT Date of service: 02/02/2019 EKG Measurement Heart [id number] [id number] <Conclusion> Normal sinus rhythm Normal ECG
== END 2019-02-02 18:49 | disposition home or self-care (01) ==
LOC: H.ER 14:34
DX: R07.89 Other chest pain (principal)
CPT/HCPCS: 71046; 71275; 80048; 81025; 84484; 85025; 85378; 93005; 96374; 99285; J1885; Q9967